=== PATIENT | female | born 1990 | race Caucasian/White ===

== ENCOUNTER 2018-03-09 09:57 | Emergency (ER) | payer OTHER ==
[~2018-03-09] VITALS: Ht 152.4 cm; Wt 49.9 kg
== END 2018-03-09 11:23 | disposition home or self-care (01) ==
LOC: ER 09:57
DX: B34.9 Viral infection, unspecified (principal)

== ENCOUNTER 2018-07-02 23:10 | Emergency (ER) | payer OTHER ==
[~2018-07-02] VITALS: Ht 157.5 cm; Wt 43.1 kg
== END 2018-07-03 02:50 | disposition home or self-care (01) ==
LOC: ER 23:10 → EDBD 23:13 → ER 07-03 02:50
DX: J06.9 Acute upper respiratory infection, unspecified (principal); J01.00 Acute maxillary sinusitis, unspecified